=== PATIENT | male | born 1985 | race Caucasian/White ===

== ENCOUNTER → 2016-09-04 | Day surgery (SDC) | payer OTHER ==
[~2016-09-04] MED LIST: ACETAMINOPHEN 1000 MG/100 ML VIAL IV ONE; ACETAMINOPHEN/HYDROcodone 325 MG/5 MG TAB ONE; BUPIVACAINE/EPINEPHRINE 0.25% 50 ML VIAL ONE; LACTATED RINGER'S 1000 ML INJ 1,000 ML ONE; LIDOCAINE 1%/EPINEPHrine 1:100,000 SOLN 20 ML VIAL ONE; MEPERIDINE HCL 25 MG/ML VIAL ONE; MIDAZOLAM HCL 2 MG/2 ML VIAL ONE; ONDANSETRON HCL 4 MG/2 ML VIAL IV PUSH ONE; PROPOFOL 200 MG/20 ML AMP IV ONE; VANCOMYCIN HCL 1000 MG VIAL ONE
--- NOTE | 2016-09-04 09:22 | TN ---
cc: SAEED SERRANO M.D. DATE OF SURGERY: 09/04/2016 PREOPERATIVE DIAGNOSIS Left inguinal hernia. POSTOPERATIVE DIAGNOSIS Left inguinal hernia, indirect type. PROCEDURE Repair of left inguinal hernia with mesh. ANESTHESIA General. SURGEON Dr. Serrano. INDICATIONS This is a pleasant 31-year-old gentleman who has a left inguinal hernia that is fairly symptomatic. Plans were made for repair. PROCEDURE The patient was taken to the operating room and placed in the supine position. After anesthesia his abdomen and groin on the left side is prepped with Betadine. Time-out was done. He was given preoperative antibiotics. We anesthetized the ilioinguinal nerve with 0.25% Marcaine solution and the left inguinal region as well. Oblique incision is made overlying the internal, external inguinal ring. We dissect down through Harini's fascia identifying the external oblique aponeurosis which is incised. Cord structures were surrounded with a Leburn drain. The hernia sac is identified, away from the cord structures. Ilioinguinal nerve is preserved. He is quite thin. We then secure the mesh, was cut to size the pubic tubercle, Pablito's ligament, iliopubic tract out laterally, all done with 0-Ethibond. Conjoined tendon is used to secure the medial aspect of the mesh with the 0-Ethibond. Tails were then fashioned to themselves and the internal oblique aponeurosis, again preserving the ilioinguinal nerve. We then closed the external oblique aponeurosis with a 2-0 Vicryl and Harini's with a 3-0 Vicryl and skin with 4-0 Vicryl. Steri-Strips were applied. Sterile bandage was applied. The patient tolerated the procedure well and had no immediate postop complications. Saeed Serrano MD JDB/JOVANNA /9:04 AM /9:10 AM
== END | disposition home or self-care (01) ==
LOC: ESDC 06:32
PROVIDERS: ATTEND Surgery
DX: K40.90 Unilateral inguinal hernia, without obstruction or gangrene, not specified as recurrent (principal)
CPT/HCPCS: 00830; 49505; 88302; C1781; J0131; J2175; J2250; J2405; J3010; J3370; J7120